=== PATIENT | male | born 1975 | race Caucasian/White ===

== ENCOUNTER → 2017-05-15 | Outpatient (CLI) | payer OTHER | LOC: BMCIMAGING 16:03 | PROVIDERS: ATTEND Family Medicine | DX: M51.37 Other intervertebral disc degeneration, lumbosacral region (principal); M51.34 Other intervertebral disc degeneration, thoracic region; M51.36 Other intervertebral disc degeneration, lumbar region; Y99.0 Civilian activity done for income or pay ==

== ENCOUNTER 2017-06-15 13:26 | Emergency (ER) | payer OTHER ==
[2017-06-15 13:46] VITALS: RESP 16; O2SAT 97
--- NOTE | 2017-06-15 15:22 | EDPHY ---
H & P Stated Complaint: back pain Time Seen by Provider: 06/15/17 15:02 HPI/ROS: CHIEF COMPLAINT: "No matter what position I move in my lumbar hurts;" vomiting HISTORY OF PRESENT ILLNESS: The patient is a 41 y/o male with a history of a spinal surgery complaining of ongoing "crampy" lumbar back pain and vomiting onset today. He had a back injury at work one month ago while moving a dish rack. This caused lumbar back pain and he describes some intermittent associated sensation of weakness and tingling along both inner thighs. He says, "I can definitely walk, but my legs feel weak and shaky." He also mentioned rolling over in the middle of the night and urinating on himself once. He denies saddle anesthesia, bowel incontinence, or any other urinary incontinence events. He has been treating his pain with heat, ice, ibuprofen, and a TENS unit. He was advised by urgent care to get an MRI and was referred to [facility] , but has not done this yet due to issues coordinating with workman's comp. This morning he woke up with worsening back pain and vomited once so he went to urgent care. They referred him to the ED and he arrived via taxi. He denies abdominal pain, fever, cough, diarrhea, dyspnea, chest pain. REVIEW OF SYSTEMS: Constitutional: No fever, no chills Eyes: No visual changes ENT: No sore throat Respiratory: No cough, no shortness of breath Cardiac: No chest pain Gastrointestinal: No nausea, +vomiting, no abdominal pain Genitourinary: No hematuria, no dysuria Musculoskeletal: No leg pain or swelling Skin: No rash Neurological: No headache, no numbness, no weakness Psychiatric: No depression - Personal History Current Tetanus/Diphtheria Vaccine: Yes Current Tetanus Diphtheria and Acellular Pertussis (TDAP): Yes Tetanus Vaccine Date: < 10 years - Medical/Surgical History PMH: Lumbar spinal surgery 2009. Hx Asthma: No Hx Chronic Respiratory Disease: No Hx Diabetes: No Hx Cardiac Disease: No Hx Renal Disease: No Hx Cirrhosis: No Hx Alcoholism: No Hx HIV/AIDS: No Hx Splenectomy or Spleen Trauma: No Other PMH: L5 discectomy,back surgery, right ankle surgery - Social History Smoking Status: Current some day smoker Additional Social History: Employed. Occasional marijuana and tobacco use. Denies illicit drugs. - Physical Exam Exam: General Appearance: Alert, pleasant Eyes: Pupils equal and round, no conjunctival pallor ENT, Mouth: Mucous membranes moist Neck: Normal inspection Respiratory: Lungs are clear to auscultation Back: Paraspinous tenderness along upper lumbar spine Cardiovascular: Regular rate and rhythm Gastrointestinal: Abdomen is soft and non-tender Rectal: normal rectal tone Neurological: A&O, 1+ patellar reflexes, normal strength and sensation lower extremities, including dorsiflexion of the foot and 1st toe, normal gait Skin: Warm and dry, no rash Extremities: Normal inspection Psychiatric: Mood and affect normal Constitutional: Initial Vital Signs Temperature (C) 37.1 C 06/15/17 13:44 Heart Rate 66 06/15/17 13:44 Respiratory Rate 16 06/15/17 13:44 Blood Pressure 136/84 H 06/15/17 13:44 O2 Sat (%) 97 06/15/17 13:44 O2 Delivery Mode Room Air Allergies/Adverse Reactions: No Known Allergies Allergy (Unverified 06/15/17 13:42) Home Medications: Medication Instructions Recorded Ondansetron Odt [Zofran Odt 4 mg 4 mg PO Q4 PRN #6 tab 06/15/17 (*)] methylPREDNISolone [Medrol Dose 1 each PO AD #1 ea 06/15/17 Ben] Medical Decision Making - Diagnostics Imaging Results: Imaging Impressions Lumbar Spine MRI 06/15/17 15:25 Impression: 1. Multilevel degenerative changes are seen, as detailed above. Borderline canal stenosis occurs at several levels. No definite abnormality is seen to suggest a cauda equina syndrome.. 2. See above report for findings at specific levels. Results called and discussed with Dr. Kita Muhammad on June 15, 2017 at 1657 hours. Imaging: Discussed imaging studies w/ systems engineer Radiologist, I viewed and interpreted images myself ED Course/Re-evaluation: This is a 41 y/o male with a history of a lumbar spine surgery presenting with a 1-month history of lumbar back pain after an injury at work. He has not been able to follow up with a neurosurgeon or received an MRI yet for further evaluation of his symptoms, which include subjective bilateral thigh weakness and one episode of urinary incontinence during the night. He has a normal neurologic exam here and mild upper lumbar paraspinous tenderness. Plan for IV, labs, pain management, and lumbar spine MRI. 1L IV NS, 15mg IV Toradol, 4mg IV Zofran, 0.5mg IV Ativan, and lidocaine patch. 1740: Reassessed patient and discussed work up. He feels improved after medication administration. His neurologic exam remains normal. Labs are unremarkable. His MRI is normal. He will be discharged with standard back pain care and follow up instructions. He's been given scripts for Zofran and Medrol dose pack for symptoms. He understands he needs to follow up with [facility] as planned and establish care with a PCP. Return precautions discussed. He is comfortable with this plan. Differential Diagnosis: Differential diagnosis for back pain includes muscular pain, herniated disc, epidural abscess, discitis, spine fracture, intra-abdominal causes and urinary tract infection. - Data Points Laboratory Results: Laboratory Results 06/15/17 15:49 06/15/17 15:49 06/15/17 06/15/17 15:49 15:49 WBC 13.87 10^3/uL H 10^3/uL (3.80-9.50) RBC 4.68 10^6/uL 10^6/uL (4.40-6.38) Hgb 16.2 g/dL g/dL (13.7-17.5) Hct 45.6 % % (40.0-51.0) MCV 97.4 fL fL (81.5-99.8) MCH 34.6 pg H pg (27.9-34.1) MCHC 35.5 g/dL g/dL (32.4-36.7) RDW 12.1 % % (11.5-15.2) Plt Count 224 10^3/uL 10^3/uL (150-400) MPV 10.2 fL fL (8.7-11.7) Neut % (Auto) 92.2 % H % (39.3-74.2) Lymph % (Auto) 2.5 % L % (15.0-45.0) Graves % (Auto) 4.5 % % (4.5-13.0) Eos % (Auto) 0.2 % L % (0.6-7.6) Baso % (Auto) 0.2 % L % (0.3-1.7) Nucleat RBC Rel Count 0.0 % % (0.0-0.2) Absolute Neuts (auto) 12.78 10^3/uL H 10^3/uL (1.70-6.50) Absolute Lymphs (auto) 0.35 10^3/uL L 10^3/uL (1.00-3.00) Absolute Monos (auto) 0.62 10^3/uL 10^3/uL (0.30-0.80) Absolute Eos (auto) 0.03 10^3/uL 10^3/uL (0.03-0.40) Absolute Basos (auto) 0.03 10^3/uL 10^3/uL (0.02-0.10) Absolute Nucleated RBC 0.00 10^3/uL 10^3/uL (0-0.01) Immature Gran % 0.4 % % (0.0-1.1) Immature Gran # 0.06 10^3/uL 10^3/uL (0.00-0.10) Sodium 140 mEq/L mEq/L (134-144) Potassium 4.5 mEq/L mEq/L (3.5-5.2) Chloride 105 mEq/L mEq/L (97-110) Carbon Dioxide 22 mEq/l mEq/l (22-31) Anion Gap 13 mEq/L mEq/L (8-16) BUN 12 mg/dL mg/dL (7-23) Creatinine 0.9 mg/dL mg/dL (0.7-1.3) Estimated GFR > 60 Glucose 92 mg/dL mg/dL (70-100) Calcium 9.6 mg/dL mg/dL (8.5-10.4) Medications Given: Discontinued Medications Sodium Chloride (Ns) 1,000 mls @ 0 mls/hr IV EDNOW ONE; Wide Open PRN Reason: Protocol Stop: 06/15/17 15:27 Last Admin: 06/15/17 15:44 Dose: 1,000 mls Ketorolac Tromethamine (Toradol) 15 mg IVP EDNOW ONE Stop: 06/15/17 15:28 Last Admin: 06/15/17 15:44 Dose: 15 mg Lidocaine (Lidoderm 5%) 1 ea TD EDNOW ONE Stop: 06/15/17 16:11 Last Admin: 06/15/17 17:12 Dose: 1 ea Lorazepam (Ativan Injection) 0.5 mg IVP EDNOW ONE Stop: 06/15/17 15:28 Last Admin: 06/15/17 15:48 Dose: 0.5 mg Ondansetron HCl (Zofran) 4 mg IVP EDNOW ONE Stop: 06/15/17 15:27 Last Admin: 06/15/17 15:44 Dose: 4 mg Ondansetron HCl (Zofran) 4 mg IVP EDNOW ONE Stop: 06/15/17 17:44 Last Admin: 06/15/17 17:43 Dose: 4 mg Departure - Departure Disposition: Home, Routine, Self-Care Clinical Impression: Lumbar back sprain Qualifiers: Encounter type: initial encounter Qualified Code(s): S33.5XXA - Sprain of ligaments of lumbar spine, initial encounter Condition: Good Instructions: Lidocaine Patch (On the skin), Low Back Strain (ED) Additional Instructions: 1. Take Medrol dose pack as prescribed. Be sure to complete the entire prescription. 2. Apply lidocaine patches to painful areas as directed. Patches can stay on for 12 hours at a time. 3. You can also try a heating pad. 4. Use Zofran as prescribed if needed for nausea and vomiting. 5. Follow up with back specialist as planned. 6. Establish care with a primary care provider. You've been referred to Dr. Jain. 7. Return to the ED for worsening of condition. Referrals: Sarahy Jain MD [[facility] [place] Primary Care Provider] - As per Instructions [facility] [Outside] - As per Instructions Prescriptions: methylPREDNISolone [Medrol Dose Ben] 1 each PO AD #1 ea Ondansetron Odt [Zofran Odt 4 mg (*)] 4 mg PO Q4 PRN #6 tab PRN Reason: Nausea Report Scribed for: Kita Muhamamd Report Scribed by: Neda Andrade Date of Report: 06/15/17 Time of Report: 15:22 Physician Review and Approval Statement: 06/15/17 15:22 Portions of this note were transcribed by a medical anthropology director. I personally performed a history, physical exam, medical decision making, and confirmed accuracy of information the transcribed note.
[2017-06-15] MEDS ORDERED: NS 1,000 ML IV ONE (15:26)
[2017-06-15] MEDS ORDERED: ONDANSETRON 4 MG/2 ML VIAL IVP ONE ×2 (15:26→17:43)
[2017-06-15] MEDS ORDERED: LORazepam 2 MG/ML INJ IVP ONE (15:27)
[2017-06-15] MEDS ORDERED: KETOROLAC 15 MG/1 ML SDV IVP ONE (15:27)
[2017-06-15 15:57] LABS: % IMMATURE GRANULYOCYTES 0.4 % (0.0-1.1); ABSOLUTE IMMATURE GRANULOCYTES 0.06 10^3/uL (0.00-0.10); ADD DIFF? NO; ADD MORPH? NO; ADD SCAN? NO; ATYPICAL LYMPHOCYTE FLAG 0 (0-99); FRAGMENT RBC FLAG 0 (0-99); HEMATOCRIT 45.6 % (40.0-51.0); HEMOGLOBIN 16.2 g/dL (13.7-17.5); LEFT SHIFT FLG 0 (0-99); LIPEMIA HEMOLYSIS FLAG 90 (0-99); MEAN CELL HEMOGLOBIN 34.6 pg (27.9-34.1); MEAN CELL HEMOGLOBIN CONCENTR. 35.5 g/dL (32.4-36.7); MEAN CELL VOLUME 97.4 fL (81.5-99.8); MEAN PLATELET VOLUME 10.2 fL (8.7-11.7); PLATELET CLUMPS FLAG 10 (0-99); PLATELET COUNT 224 10^3/uL (150-400); RED BLOOD CELL COUNT 4.68 10^6/uL (4.40-6.38); RED CELL DISTRIBUTION WIDTH 12.1 % (11.5-15.2)
[2017-06-15] MEDS ORDERED: LIDOCAINE 5% 1 EA PATCH TD ONE (16:10)
[2017-06-15 16:13] LABS: ANION GAP 13 mEq/L (8-16); CALCIUM 9.6 mg/dL (8.5-10.4); CARBON DIOXIDE 22 mEq/l (22-31); CHLORIDE 105 mEq/L (97-110); CREATININE 0.9 mg/dL (0.7-1.3); GLOMERULAR FILTRATION RATE > 60; GLUCOSE 92 mg/dL (70-100); POTASSIUM 4.5 mEq/L (3.5-5.2); SODIUM 140 mEq/L (134-144)
[2017-06-15 17:11] VITALS: BP 125/78; PULSE 78; TEMP 99.1
[2017-06-15] MEDS ORDERED: ONDANSETRON 4 MG/2 ML VIAL ONE (17:41)
[2017-06-15] MEDS ORDERED: PATCH REMOVAL 1 EA PATCH TD SCH (21:00)
== END 2017-06-15 18:04 | disposition home or self-care (01) ==
DX: S33.5XXA Sprain of ligaments of lumbar spine, initial encounter (principal); F17.200 Nicotine dependence, unspecified, uncomplicated; E86.9 Volume depletion, unspecified; X58.XXXA Exposure to other specified factors, initial encounter
CPT/HCPCS: 96374; J1885; J2060; J2405

== ENCOUNTER 2018-12-05 11:17 | Emergency (ER) | payer MEDICAID | END 2018-12-05 12:20 | disposition home or self-care (01) ==

== ENCOUNTER 2018-12-07 13:40 | Day surgery (SDC) | payer MEDICAID | END 2018-12-07 18:40 | disposition home or self-care (01) | LOC: FSGY 13:40 ==